=== PATIENT | female | born 1975 | race Asian ===

== ENCOUNTER → 2017-07-25 | Outpatient (CLI) | payer BC ==
[~2017-07-25] MED LIST: DIAMOX 250MG250 MG PO; LOVENOX 3030 MG/0.3 SQ; MOTRIN 600600 MG/TAB PO; PERCOCET 325 MG1 TA2 PO; PREDNISONE10 MG PO; PRENATAL1 TA1 PO; ZOFRAN 4MG T4 MG/TAB PO
== END ==
LOC: COL.RAD 11:23
DX: J34.89 Other specified disorders of nose and nasal sinuses (principal); R11.2 Nausea with vomiting, unspecified; Z86.718 Personal history of other venous thrombosis and embolism